=== PATIENT | male | born 2000 | race Caucasian/White ===

== ENCOUNTER 2021-06-18 09:48 | Outpatient (CLI) | payer BC ==
[~2021-06-18 09:48] MED LIST: Magnevist 469MG/ML 20 ML VIAL ONE
== END 2021-06-18 09:49 | disposition home or self-care (01) ==
LOC: MRI 09:48
PROVIDERS: ATTEND Internal Medicine
DX: E29.1 Testicular hypofunction (principal); E22.1 Hyperprolactinemia
CPT/HCPCS: 70553; A9579